=== PATIENT | female | born 1935 | race Caucasian/White ===

== ENCOUNTER 2021-11-30 19:57 | Emergency (ER) | payer MEDICARE ==
[~2021-11-30] VITALS: Ht 154.9 cm; Wt 63.6 kg
[2021-11-30] VITALS (7 sets, daily range): BP systolic 130–160; BP diastolic 49–80
[~2021-11-30 19:57] MED LIST: ACET-3209 PO; DOCU-28 PO; DULR RC; HYDR12.5 PO; LOSA50TA3 PO; MAGN400O6 PO; MORP15TA PO; MORP30TA60 PO; MULT-620 PO; OMEP20CA15 PO; iohexol 350MG/ML 100ml bottle IV ONE; normal saline 50 ML solution ONE; sod chloride 0.9% 10ml flush syringe IV ONE
--- NOTE | 2021-11-30 20:00 | NUR ---
In house for level 1 stroke. Upon my arrival to ED room 2. Pt noticed to have forced right eye deviation and flaccid left arm and leg. Speaking, though slurred. Oriented to person only. Cristobal neglect on left. 2009 tele neuro exam [address] Hall. Pt TPA candidate and probable LVO based on presentation. 2nd large bore IV left forearm inserted by bedside RN. Pt post op left hip replacement 12 days prior per pts son "Anshu". On daily 81mg ASA per med list. Pt in Afiib per CM. Not known if new onset. Son not aware of pts afib. No anti coags noted on hand written med list. Pt flailing right arm and leg, and trying to remove partial plate. Restless. [id number] Son says "this is her accurate med list to the best of his knowledge. This was communicated to Dr. Glover. TPA made ready. Bolus dose given at 2044 with 1 hour infusion started while returned to CT for CTA. All the while pt flailing right arm and leg. Medicated with morphine 2mg IV for left hip incisional pain. 2206 Pt transferred to [facility] for neuro intervention consult. LVO confirmed by CTA.
[2021-11-30 20:20] LABS: BASOPHILS # (AUTO) 0.1 X10'3 (0-0.2); EOSINOPHILS # (AUTO) 0.3 X10'3 (0-0.9); RED CELL DISTRIBUTION WIDTH 16.2 % (11.5-14.5)
[2021-11-30 20:21] LABS: BASOPHILS % (AUTO) 1.3 % (0-1); EOSINOPHILS % (AUTO) 2.9 % (0-6); HEMATOCRIT 27.6 % (35.0-45.0); HEMOGLOBIN 9.8 g/dl (12.0-16.0); LYMPHOCYTES # (AUTO) 1.6 X10'3 (1.1-4.8); LYMPHOCYTES % (AUTO) 18.4 % (21-51); MEAN CORPUSCULAR HGB CONC 35.6 g/dL (33.0-36.5); MEAN CORPUSCULAR VOLUME 81.6 FL (78-98); MEAN PLATELET VOLUME 9.2 FL (7.4-10.4); MONOCYTES % (AUTO) 11.1 % (2-12); NEUTROPHILS # (AUTO) 5.9 X10'3 (1.8-7.7); NEUTROPHILS % (AUTO) 66.3 % (42-75); PLATELET COUNT 344 X10'3 (140-440); RED BLOOD COUNT 3.38 X10'6 (4.20-5.60); WHITE BLOOD COUNT 8.9 X10'3 (4.5-11.0)
[2021-11-30 20:34] LABS: APTT 24 SECONDS (22-32)
[2021-11-30 20:35] LABS: ALANINE AMINOTRANSFERASE 24 U/L (12-78); ALBUMIN 3.1 G/DL (3.4-5.0); ALBUMIN/GLOBULIN RATIO 0.8 (1.1-1.5); ALKALINE PHOSPHATASE 93 IU/L (46-116); ANION GAP 13 (8-16); ASPARTATE AMINO TRANSFERASE 30 U/L (10-37); BILIRUBIN,TOTAL 0.6 MG/DL (0.1-1.0); BLOOD UREA NITROGEN 35 MG/DL (7-18); CALCIUM 8.2 MG/DL (8.5-10.1); CHLORIDE 94 MMOL/L (99-107); CREATININE 1.25 MG/DL (0.40-0.90); GLUCOSE 131 MG/DL (70-104); SODIUM 130 MMOL/L (135-145); TOTAL PROTEIN 7.1 G/DL (6.4-8.2); eGFR 41 ML/MIN
[2021-11-30] MEDS ORDERED: morphine 4 MG/ML inj SYRINge IV ONE (20:45)
[2021-11-30] MEDS ORDERED: alteplase 100MG inj. 100 ML IV ONE (22:15)
[2021-11-30] MEDS ORDERED: normal saline 50ml IV soln 50 ML IV SCH (22:30)
== END 2021-11-30 22:07 | disposition hospice, inpatient (51) ==
LOC: ER 19:57 → EDBD 19:57 → ER 22:07
DX: I63.511 Cerebral infarction due to unspecified occlusion or stenosis of right middle cerebral artery (principal); Z20.822 Contact with and (suspected) exposure to COVID-19; I48.91 Unspecified atrial fibrillation; R53.1 Weakness; R29.810 Facial weakness; E11.9 Type 2 diabetes mellitus without complications
CPT/HCPCS: 70450; 70496; 70498; 80053; 85025; 85610; 85730; 87635; 96361; 96374; 96375; 99291; C9803; J2270; J2997; J3490; Q9967